=== PATIENT | male | born 1990 | race Caucasian/White ===

== ENCOUNTER 2021-09-04 20:46 | Inpatient (IN) ==
[2021-09-04] MEDS ORDERED: Baclofen 10 MG TABLET PO ONE (21:46)
[2021-09-04] MEDS ORDERED: Ibuprofen 800 MG TABLET PO ONE (21:46)
[2021-09-04] MEDS ORDERED: *HR* OxyCODONE/APAP 5/325 TABLET PO ONE (21:47)
[2021-09-04] MEDS ORDERED: *HR* LORazepam 2 MG/ML VIAL IM ONE (23:03)
[2021-09-04] MEDS ORDERED: Cefdinir 300 MG CAPSULE PO ONE (23:06)
[2021-09-05] MEDS ORDERED: Baclofen 10 MG TABLET PO PRN ×2 (08:03→11:14)
[2021-09-05] MEDS ORDERED: *HR* LORazepam 2 MG/ML VIAL IM ONE (08:05)
[2021-09-05] MEDS: Cefdinir 300 MG CAPSULE PO SCH ×2 (08:25→21:12)
[2021-09-05] MEDS: Gabapentin 400 MG CAPSULE PO SCH ×4 (11:30→21:12)
[2021-09-05] MEDS: Baclofen 10 MG TABLET PO SCH ×4 (11:30→21:12)
[2021-09-05 12:31] LABS: Influenza A PCR Negative (Negative); Influenza B PCR Negative (Negative); Resp. Syncytial Virus PCR Negative (Negative)
[2021-09-05 12:39] LABS: SARS-CoV-2 by PCR (In House) Negative (Negative)
[2021-09-05] MEDS: Ibuprofen 400 MG TABLET PO PRN (21:15)
[2021-09-05] MEDS ORDERED: *HR* HYDROcodone/Acet 5/325 mg TABLET PO ONE (21:39)
[2021-09-05] MEDS: Melatonin 3 MG TABLET PO PRN (22:08)
[2021-09-05 22:48] LABS: Amphetamine Screen,Urine Negative ng/mL (Cutoff=1000); Barbiturate Screen,Urine Negative ng/mL (Cutoff=200); Benzodiazepines Screen,Urine Negative ng/mL (Cutoff=200); Cannabinoid Screen,Urine Positive ng/mL (Cutoff = 50); Cocaine Screen,Urine Negative ng/mL (Cutoff= 300); Opiate Screen,Urine Negative ng/mL (Cutoff=300); Phencyclidine Screen,Urine Negative ng/mL (Cutoff=25)
[2021-09-06] MEDS: *HR* Enoxaparin 40 MG/0.4 ML SYRINGE SQ SCH (05:05)
[2021-09-06] MEDS: Ibuprofen 400 MG TABLET PO PRN ×2 (09:42→20:45)
[2021-09-06] MEDS: Cefdinir 300 MG CAPSULE PO SCH ×2 (09:43→20:46)
[2021-09-06] MEDS: Gabapentin 400 MG CAPSULE PO SCH ×3 (09:43→20:45)
[2021-09-06] MEDS: Nicotine 21 MG PATCH.TD24 TD SCH (09:43)
[2021-09-06] MEDS: Baclofen 10 MG TABLET PO SCH ×3 (09:43→20:45)
[2021-09-06 09:44] LABS: Basophils # 0.1 K/mcL (0.0-0.2); Basophils % 0.6 %; Eosinophils # 0.4 K/mcL (0.0-0.6); Eosinophils % 4.2 %; Hematocrit 35.3 % (37.5-50.1); Hemoglobin 10.7 g/dL (12.9-16.9); Immature Granulocytes % 0.4 % (0-4); Lymphocytes % 23.5 %; Mean Corpuscular HGB Conc 30.3 g/dL (31.6-35.5); Mean Corpuscular Hemoglobin 23.3 pg (28.0-33.3); Mean Corpuscular Volume 76.7 fL (83.0-100.0); Mean Platelet Volume 9.3 fL (9.4-12.4); Monocytes # 0.7 K/mcL (0.0-1.3); Monocytes % 8.8 %; Neutrophils # 5.2 K/mcL (1.6-8.9); Platelet Count 476 K/mcL (140-400); Red Cell Distribution Width 17.7 % (11.5-14.5); Segmented Neutrophils % 62.5 %; White Blood Count 8.3 K/mcL (4.3-11.1)
[2021-09-06 09:50] LABS: BUN/Creatinine Ratio 32 (6-26); Blood Urea Nitrogen 24 mg/dL (6-20); Carbon Dioxide 25 mEq/L (23-29); Chloride 105 mEq/L (98-107); Glucose 134 mg/dL (70-105); Magnesium 1.8 mg/dL (1.6-2.6); Osmolality,Calculated 292 (280-300); Potassium 3.8 mEq/L (3.5-5.1); Sodium 138 mEq/L (136-145); eGFR For African Americans > 60 (> 60); eGFR For Non-African Americans > 60 (> 60)
[2021-09-06] MEDS: *HR* HYDROcodone/Acet 5/325 mg TABLET PO PRN ×2 (13:18→17:47)
[2021-09-06] MEDS: Melatonin 3 MG TABLET PO PRN (22:00)
[2021-09-06 23:42] VITALS: BP 116/75; PULSE 69; TEMP 97.7; O2SAT 97
[2021-09-07] MEDS: *HR* Enoxaparin 40 MG/0.4 ML SYRINGE SQ SCH (05:37)
[2021-09-07] MEDS: Nicotine 21 MG PATCH.TD24 TD SCH (09:28)
[2021-09-07] MEDS: Gabapentin 400 MG CAPSULE PO SCH (09:28)
[2021-09-07] MEDS: Cefdinir 300 MG CAPSULE PO SCH (09:28)
[2021-09-07] MEDS: Baclofen 10 MG TABLET PO SCH (09:28)
[2021-09-07] MEDS: *HR* HYDROcodone/Acet 5/325 mg TABLET PO PRN ×2 (09:30)
[2021-09-07 12:10] LABS: Alanine Aminotransferase 6 Units/L (7-52); Albumin 3.6 g/dL (3.5-5.7); Albumin/Globulin Ratio 1.2 (1.1-2.2); Alkaline Phosphatase 50 Units/L (34-104); Aspartate Amino Transferase 12 Units/L (13-39); Bilirubin,Total 0.2 mg/dL (0.3-1.0); Globulin 3.1 g/dL (2.4-3.5); Total Protein 6.7 g/dL (6.4-8.9)
== END 2021-09-07 14:18 | disposition home or self-care (01) | DRG 885 ==
LOC: 3ANU 20:46 → EMEROOARM 20:46 → 3ANU 09-05 17:00
PROVIDERS: ADMIT Internal Medicine; ATTEND Internal Medicine